=== PATIENT | female | born 1990 | race Two or more races ===

== ENCOUNTER 2023-06-12 20:20 | Emergency (ER) | payer OTHER ==
[~2023-06-12] VITALS: Ht 162.6 cm; Wt 81.2 kg
[2023-06-12] MEDS ORDERED: RINGERS SOLUTION,LACTATED 1,000 ML IV ONE (21:00)
[2023-06-12 21:23] LABS: HEMATOCRIT 34.3 % (36.0-45.00); HEMOGLOBIN 11.6 g/dL (12.0-15.00); MEAN CORPUSCULAR HEMOGLOBIN 28.8 pg (27.00-32.0); MEAN CORPUSCULAR HGB CONC 33.9 g/dl (32.0-36.0); PLATELET COUNT 267 K/uL (150-450); RED BLOOD COUNT 4.03 M/uL (4.00-6.00); RED CELL DISTRIBUTION WIDTH 12.8 % (11.5-14.5)
[2023-06-12 21:40] LABS: ALBUMIN 3.1 gm/dL (3.4-5.0); BILIRUBIN TOTAL 0.32 mg/dL (0.3-1.2); CALCIUM 8.8 mg/dL (8.5-10.1); CREATININE SERUM 0.65 mg/dL (0.55-1.02); GFR 104.34; GLOBULINA 3.8 G/DL (2.4-3.5); POTASSIUM 3.16 mEq/L (3.5-5.1); TOTAL PROTEIN 6.9 gm/dL (6.4-8.2)
[2023-06-12 23:08] LABS: URINE APPEARANCE Cloudy; URINE BILIRRUBIN Negative (NEGATIVE); URINE BLOOD Negative; URINE COLOR Dark Yellow; URINE GLUCOSE Negative (NEGATIVE); URINE LEUKOCYTE Negative; URINE NITRATE Negative; URINE PROTEIN Trace (NEGATIVE)
[2023-06-12 23:12] LABS: URINE BACTERIA 482.5 uL (0.0-1933); URINE EPITHELIAL CELLS 25.1 uL (0.0-38.8); URINE RBC 16.9 uL (0.0-20.8); URINE WBC 38.1 uL (0.0-23.2)
[2023-06-12 23:30] LABS: URINE CRYSTALS MODERATE /HPF
[2023-06-12 23:31] LABS: URINE MUCUS SCANT
== END 2023-06-13 00:21 | disposition home or self-care (01) ==
LOC: ER 20:20
PROVIDERS: General Practice
DX: O99.612 Diseases of the digestive system complicating pregnancy, second trimester (principal); K92.89 Other specified diseases of the digestive system; Z3A.15 15 weeks gestation of pregnancy; A09 Infectious gastroenteritis and colitis, unspecified

== ENCOUNTER 2023-11-24 09:09 | Inpatient (IN) | payer OTHER ==
[~2023-11-24] VITALS: Ht 162.6 cm; Wt 3.2 kg
[2023-11-24 10:15] LABS: PH,URINE 6.5 (5.0-8.0); URINE APPEARANCE Cloudy; URINE BILIRRUBIN Negative (NEGATIVE); URINE BLOOD Negative; URINE COLOR Yellow; URINE GLUCOSE Negative (NEGATIVE); URINE KETONE Negative (NEGATIVE); URINE LEUKOCYTE Small; URINE NITRATE Negative; URINE PROTEIN Trace (NEGATIVE); URINE UROBILINOGEN 0.2 E.U./dl
[2023-11-24 10:20] LABS: URINE BACTERIA 3769.7 uL (0.0-1933); URINE EPITHELIAL CELLS 135.8 uL (0.0-38.8); URINE RBC 4.4 uL (0.0-20.8); URINE WBC 142.5 uL (0.0-23.2)
[2023-11-24 10:21] LABS: HEMATOCRIT 33.9 % (36.0-45.00); HEMOGLOBIN 11.4 g/dL (12.0-15.00); MEAN CELL VOLUME 84.7 fL (80.00-100.00); MEAN CORPUSCULAR HEMOGLOBIN 28.5 pg (27.00-32.0); MEAN CORPUSCULAR HGB CONC 33.7 g/dl (32.0-36.0); PLATELET COUNT 185 K/uL (150-450); RED CELL DISTRIBUTION WIDTH 14.8 % (11.5-14.5)
[2023-11-24 10:49] LABS: INR 0.94; PARTIAL THROMBOPLASTIN TIME 27.9 SECONDS (22.0-34.0); PROTHROMBIN TIME 10.3 SECONDS (9.0-11.5)
[2023-11-24 10:55] LABS: RH POSITIVE
[2023-11-24 10:56] LABS: URINE CAST 0.45 uL (0.0-1.40)
[2023-11-28 09:02] VITALS: BP 123/73
[2023-11-28] MEDS ORDERED: IRON325 MG PO (09:24)
[2023-11-28] MEDS ORDERED: PRENATAL 19 TA1 EAC2 PO (09:24)
[2023-11-28] MEDS ORDERED: OXYTOCIN 10 UNITS/ML VIAL IV ONE (15:15)
[2023-11-28] MEDS ORDERED: ERYTHROMYCIN BASE OPHT 1GM EACH TUBE OP ONE (15:15)
[2023-11-28] MEDS ORDERED: CEFOXITIN SODIUM 2,000 MG VIAL IV ONE (15:15)
[2023-11-28] MEDS ORDERED: MEPERIDINE HCL/PF 50 MG/ML VIAL IM PRN (17:15)
[2023-11-28] MEDS ORDERED: PROMETHAZINE HCL 50 MG/ML AMPUL IM PRN (17:15)
[2023-11-28 19:33] VITALS: BP 118/77
[2023-11-29 00:39] VITALS: BP 111/68
[2023-11-29 05:27] VITALS: BP 121/72
[2023-11-29 06:40] LABS: HEMATOCRIT 31.2 % (36.0-45.00); HEMOGLOBIN 10.5 g/dL (12.0-15.00); MEAN CELL VOLUME 85.9 fL (80.00-100.00); MEAN CORPUSCULAR HEMOGLOBIN 28.9 pg (27.00-32.0); MEAN CORPUSCULAR HGB CONC 33.6 g/dl (32.0-36.0); PLATELET COUNT 170 K/uL (150-450); RED BLOOD COUNT 3.63 M/uL (4.00-6.00); RED CELL DISTRIBUTION WIDTH 14.9 % (11.5-14.5)
[2023-11-29] MEDS ORDERED: OxyCODONE HCL/APAP UD (PERCOCET) PO PRN (08:00)
[2023-11-29 08:37] VITALS: BP 113/74
[2023-11-29] MEDS ORDERED: PNV,CALCIUM 72/IRON/FOLIC ACID 1 TAB TABLET PO SCH (09:00)
[2023-11-29] MEDS ORDERED: DOCUSATE SODIUM 100MG CAP PO SCH (09:00)
[2023-11-29] MEDS ORDERED: SIMETHICONE 125 MG CAPSULE PO SCH (09:00)
[2023-11-29 13:43] VITALS: BP 120/79
[2023-11-29 16:00] VITALS: BP 125/80
[2023-11-30 00:26] VITALS: BP 95/60
[2023-11-30 08:00] VITALS: BP 114/73
[2023-11-30 18:00] VITALS: BP 119/82
[2023-12-01 01:09] VITALS: BP 114/78; BP 125/60
[2023-12-01 07:52] VITALS: BP 130/80
== END 2023-12-01 13:54 | disposition home or self-care (01) | DRG 785 ==
LOC: O/R 11-28 09:05 → OB/GYN 11-28 17:51
PROVIDERS: ADMIT Obstetrics & Gynecology; ATTEND Obstetrics & Gynecology
PROC: 0UB70ZZ Excision of Bilateral Fallopian Tubes, Open Approach (ICD-10-PCS; 2023-11-28)
PROC: 4A1HXCZ Monitoring of Products of Conception, Cardiac Rate, External Approach (ICD-10-PCS; 2023-11-28)
PROC: 10D00Z1 Extraction of Products of Conception, Low, Open Approach (ICD-10-PCS; principal; 2023-11-28 09:15)
DX: O34.211 Maternal care for low transverse scar from previous cesarean delivery (principal); Z30.2 Encounter for sterilization; Z37.0 Single live birth; Z20.822 Contact with and (suspected) exposure to COVID-19; Z3A.39 39 weeks gestation of pregnancy